=== PATIENT | male | born 1990 | race Caucasian/White ===

== ENCOUNTER 2023-03-09 06:53 | Outpatient (CLI) | payer BC ==
[~2023-03-09] VITALS: Ht 182 cm; Wt 86.7 kg
== END 2023-03-09 13:38 | disposition home or self-care (01) ==
LOC: PREOP 06:53
PROVIDERS: ATTEND Internal Medicine
DX: Z01.818 Encounter for other preprocedural examination (principal)

== ENCOUNTER 2023-03-18 07:31 | Day surgery (SDC) | payer BC ==
--- NOTE | 2023-03-08 09:04 | HISTORY AND PHYSICAL ---
COLONOSCOPY HISTORY AND PHYSICAL HISTORY OF PRESENT ILLNESS: The patient is a 33-year-old white male, referred by Dr. Schulte for colonoscopy for evaluation of diarrhea over the past 6 months with left lower quadrant abdominal pain as well as rectal pain with improvement with the passage of stool. The patient reports around mid September, bowel habits became rather erratic. His first meal of the day is usually lunch, and after that, he will have some urgency with abdominal pain and discomfort. There is partial alleviation with the passage of stool. He denies any rectal pain around defecation and has noted no bright red blood per rectum or melena. He will have several more loose to liquid stools. He was hoping his symptoms would sánchez, but they have not. He denied infection or antibiotic use prior to the onset of bowel habit change. He reports no increase in stress that he is aware of and has never had bowel issues in the past. He thinks that his weight has been stable. Denies chills, fever, arthralgia, or any oral problem source, etc. He denies any change in diet and there has been no reported travel history. PAST SURGICAL HISTORY: He had right inguinal hernia repair as a child as well as tonsillectomy and adenoidectomy with no abdominal surgeries being noted. SOCIAL HISTORY: He is , 2 boys at home, and reports that is a girl on the way. He works as an automobile damage appraiser for the [employer] with no past smoking history and occasional small volume alcohol use. FAMILY HISTORY: He is not aware of any family history for colon cancer, polyps, or inflammatory bowel disease. REVIEW OF SYSTEMS: CONSTITUTIONAL: Denies night sweats, chills, fever, or change in weight. GASTROINTESTINAL: As noted in the HPI. PULMONARY: Denies cough, wheezing, or shortness of breath. CARDIOVASCULAR: Denies chest pain, orthopnea, PND, pedal edema, or dyspnea on exertion. PHYSICAL EXAMINATION: GENERAL: Reveals a well-appearing white male, congenital absence of the left hand. Extremities otherwise unremarkable. VITAL SIGNS: Weight 190.8 pounds, blood pressure 110/78. HEENT: Unremarkable. CHEST: Clear. CARDIOVASCULAR: Reveals a regular rate and rhythm without murmur, S3, or S4. ABDOMEN: Soft, supple, without mass or organomegaly. Left lower quadrant discomfort to palpation without rebound, guarding, or distention. EXTREMITIES: Revealed no cyanosis, clubbing, or edema. ASSESSMENT AND PLAN: Change in bowel habit with diarrhea over the past 6 months, left lower quadrant abdominal pain as well as perirectal discomfort. The patient is undergoing diagnostic colonoscopy. Prep instructions were given and questions were answered. I thank you for the referral of this pleasant gentleman. Job ID: [id number] DocumentID: [id number] Dictated Date: 03/07/2023 13:09:20 Wood Grinder Date: 03/07/2023 13:48:00 Dictated By: FEI CANALES MD
[~2023-03-18] VITALS: Ht 182 cm; Wt 86.7 kg
[2023-03-18] MEDS ORDERED: LACTATED RINGERS 1,000 ML IV STA (07:38)
[2023-03-18] MEDS ORDERED: LIDOCAINE JELLY 2% 6 ML SYRINGE MM PRN (07:45)
[2023-03-18 07:51] VITALS: BP 157/108
--- NOTE | 2023-03-18 07:51 | Pre-Op Note & Conscious Sedat ---
Pre-Operative Progress Note Date H&P Reviewed: Mar 18, 2023 Time H&P Reviewed: 07:50 History & Physical: H&P Reviewed, Patient Examed, No changes noted Pre-Op Diagnosis: diarrhea and LLQ abdominal pain Moderate Sedation PreProcedure ASA Score 1 Airway Lungs Heart ASA score ASA 1: a normal healthy patient ASA 2: a patient with a mild systemic disease (mid diabetes, controlled hypertension, obesity ASA 3: a patient with a severe systemic disease that limits activity (angina, COPD, prior Myocardial infarction) ASA 4: a patient with an incapacitating disease that is a constant threat to life (CHF, renal failure) ASA 5: a moribund patient not expected to survive 24 hrs. (ruptured aneurysm) ASA 6: a declared brain- patient whose organs are being harvested. For emergent operations, add the letter E after the classification Mallampati Classification Grade 1 Sedation Plan Analgesia, Amnesia, Plan communicated to team members, Discussed options with patient/fam, Discussed risks with patient/fam The patient is an appropriate candidate to undergo the planned procedure, sedation, and anesthesia. The patient immediately re-assessed prior to indication. FEI CANALES MD Mar 18, 2023 07:51
[2023-03-18] MEDS ORDERED: MIDAZOLAM INJ 2 MG/2 ML VIAL ONE (08:33)
[2023-03-18] MEDS ORDERED: PROPOFOL INJECTION 50 ML IV ONE ×2 (08:33→08:51)
[2023-03-18] MEDS ORDERED: KETAMINE 50 MG/5 ML SYRINGE ONE (08:45)
[2023-03-18 09:15] VITALS: BP 112/73
--- NOTE | 2023-03-18 09:17 | Progress Note-Post Operative ---
Post-Procedure Note Physician (s)/Investigation Officer (s) Physician FEI CANALES MD Pre-Procedure Diagnosis Pre-Procedure Diagnosis: diarrhea and LLQ abdominal pain Post-Procedure Diagnosis Post-operative diagnosis: Prior to undergoing colonoscopy digital rectal evaluation was performed. Anal Sphincter tone was normal and the perianal reflexes intact. Prostate was unremarkable on digital inspection. The colonoscope was then inserted into the rectum and direct visitation advanced to the cecum. the cecum was identified by an indication of the ileocecal valve and cecal strap. Photographic documentation obtained. Careful inspection was made as the colonoscope withdrawn. Quality the prep was good. Findings there are no evidence for internal or external hemorrhoids. The rectum was unremarkable. Present the distal sigmoid colon was a 3 mm sessile hyperplastic appearing polyp was photographed and biopsied and ablated with no blood loss. Considering history of diarrhea to take a biopsy of the rectum to evaluate for microscopic colitis. The remainder of the sigmoid colon descending colon splenic flexure transverse colon hepatic flexure ascending colon and cecum were unremarkable as well as distal 5 cm of terminal ileum. A/P 1. One 3 mm sessile polyp was removed via hot forceps from the distal sigmoid colon with an otherwise normal colonoscopy to cecum including terminal ileum. Considering today's findings and the patient's symptoms are consistent with underlying irritable bowel syndrome. Patient was reassured by today's findings. Biopsy is pending to rule out microscopic colitis. I thank you for the referral of this pleasant gentleman. I should also add that he required more than the average amount of diprovan and admits to being a daily pot smoker. sincerely, Fei Canales MD. CC: Dr. Estelita DURAND MD. FEI CANALES MD Mar 18, 2023 09:17
[2023-03-18 09:20] VITALS: BP 123/77
[2023-03-18 09:25] VITALS: BP 131/82
[2023-03-18 09:45] VITALS: BP 141/84
[2023-03-18 10:02] VITALS: BP 141/84
== END 2023-03-18 10:02 | disposition home or self-care (01) ==
LOC: ENDO 07:31
PROVIDERS: ATTEND Internal Medicine
DX: K63.5 Polyp of colon (principal); R19.7 Diarrhea, unspecified